=== PATIENT | female | born 1950 | race Caucasian/White ===

== ENCOUNTER 2021-07-10 11:26 | Day surgery (SDC) | payer MEDICARE, MEDICAID ==
[~2021-07-10] VITALS: Ht 157.5 cm; Wt 58.1 kg
[2021-07-10] MEDS ORDERED: fentaNYL/PF 50MCG/1 ML 2ML syringe ONE (11:40)
[2021-07-10] MEDS ORDERED: midazolam 1 mg/ML 2ml injection ONE (11:40)
[2021-07-10] MEDS ORDERED: heparin sodium, porcine/PF 100unit/ml 5ML syringe ONE (11:40)
[2021-07-10 11:50] VITALS: BP 141/72
[2021-07-10] MEDS ORDERED: normal saline 1000ml 1,000 ML IV PRN (11:50)
[2021-07-10] MEDS ORDERED: ALBU90AE2 INH (12:03)
[2021-07-10] MEDS ORDERED: HYDR-3972 PO (12:03)
[2021-07-10] MEDS ORDERED: GABAPENTIN PO (12:03)
[2021-07-10] MEDS ORDERED: ERGO400C PO (12:03)
[2021-07-10] MEDS ORDERED: BACL20TA PO (12:03)
[2021-07-10] MEDS ORDERED: OMEP40CA21 PO (12:03)
[2021-07-10] MEDS ORDERED: MULT-1085 PO (12:03)
[2021-07-10] MEDS ORDERED: MAGN250T11 PO (12:03)
[2021-07-10] MEDS ORDERED: EZET10TA48 PO (12:03)
[2021-07-10] MEDS ORDERED: ASCO100T12 PO (12:03)
[2021-07-10] MEDS ORDERED: ASPI81TA52 PO (12:03)
[2021-07-10] MEDS ORDERED: CYAN50009 PO (12:03)
[2021-07-10] MEDS ORDERED: LEVO75TA56 PO (12:03)
[2021-07-10] MEDS ORDERED: DICL75TA28 PO (12:03)
[2021-07-10] MEDS ORDERED: LOVA40TA2 PO (12:03)
[2021-07-10] MEDS ORDERED: normal saline 1000ml 1,000 ML IV SCH (13:10)
[2021-07-10 13:14] VITALS: BP 134/92
[2021-07-10 13:30] VITALS: BP 132/77
[2021-07-10 13:45] VITALS: BP 118/65
[2021-07-10 14:00] VITALS: BP 110/65
== END 2021-07-10 14:20 | disposition home or self-care (01) ==
LOC: SSTAY O 11:26
PROVIDERS: ATTEND Radiology Diagnostic Radiology
DX: C50.212 Malignant neoplasm of upper-inner quadrant of left female breast (principal); E78.00 Pure hypercholesterolemia, unspecified; I25.10 Atherosclerotic heart disease of native coronary artery without angina pectoris; E03.9 Hypothyroidism, unspecified; Z88.5 Allergy status to narcotic agent; Z79.899 Other long term (current) drug therapy; Z79.82 Long term (current) use of aspirin
CPT/HCPCS: 36561; 76937; 77001; 99152; C1769; C1788; C1894; J1642; J2250; J3010; 99153

== ENCOUNTER 2021-08-04 06:01 | Inpatient (IN) | payer MEDICARE, MEDICAID ==
[~2021-08-04] VITALS: Ht 167.6 cm; Wt 59.1 kg
[~2021-08-04 06:01] MED LIST: ALBU90AE2 INH; ASCO100T12 PO; ASPI81TA52 PO; BACL20TA PO; CYAN50009 PO; DICL75TA28 PO; ERGO400C PO; EZET10TA48 PO; GABAPENTIN PO; HYDR-3972 PO; LEVO75TA56 PO; LOVA40TA2 PO; MAGN250T11 PO; MULT-1085 PO; OMEP40CA21 PO
[2021-08-04] MEDS ORDERED: normal saline 1000ML IV soln IVB ONE (06:50)
--- NOTE | 2021-08-04 07:01 | NUR ---
Ernie haywood in ED - 08/04/21 at 0742 by CHRISTINE PT DIFFICULT TO AROUSE FOR DC APPEARS PT WAS THE SAME DURING PREVIOUS DC ABLE TO AROUSE PT TO CALL [facility] HOME NO ANSWER AT THIS TIME
[2021-08-04 07:38] LABS: EOSINOPHILS % (AUTO) 0.1 % (0-6); HEMOGLOBIN 11.8 g/dl (12.0-16.0); LYMPHOCYTES # (AUTO) 1.2 X10'3 (1.1-4.8); MEAN PLATELET VOLUME 9.1 FL (7.4-10.4); NEUTROPHILS # (AUTO) 26.1 X10'3 (1.8-7.7)
[2021-08-04 07:39] LABS: BASOPHILS # (AUTO) 0.1 X10'3 (0-0.2); BASOPHILS % (AUTO) 0.2 % (0-1); HEMATOCRIT 36.3 % (35.0-45.0); LYMPHOCYTES % (AUTO) 4.1 % (21-51); MEAN CORPUSCULAR HEMOGLOBIN 28.2 PG (27.0-31.0); MEAN CORPUSCULAR HGB CONC 32.4 g/dL (33.0-36.5); MEAN CORPUSCULAR VOLUME 87.1 FL (78-98); MONOCYTES # (AUTO) 2.3 X10'3 (0-0.9); MONOCYTES % (AUTO) 7.7 % (2-12); NEUTROPHILS % (AUTO) 87.9 % (42-75); PLATELET COUNT 154 X10'3 (140-440); RED BLOOD COUNT 4.17 X10'6 (4.20-5.60); RED CELL DISTRIBUTION WIDTH 14.9 % (11.5-14.5)
[2021-08-04 07:42] LABS: ALANINE AMINOTRANSFERASE 42 U/L (12-78); ALBUMIN 2.5 G/DL (3.4-5.0); ALBUMIN/GLOBULIN RATIO 0.7 (1.1-1.5); ALKALINE PHOSPHATASE 97 IU/L (46-116); ANION GAP 10 (8-16); ASPARTATE AMINO TRANSFERASE 30 U/L (10-37); BILIRUBIN,TOTAL 0.3 MG/DL (0.1-1.0); BLOOD UREA NITROGEN 13 MG/DL (7-18); BUN/CREATININE RATIO 14.1 (6.6-38.0); CALCIUM 8.5 MG/DL (8.5-10.1); CHLORIDE 103 MMOL/L (99-107); CREATININE 0.92 MG/DL (0.40-0.90); GLUCOSE 129 MG/DL (70-104); SODIUM 146 MMOL/L (135-145); TOTAL CARBON DIOXIDE 33.4 MMOL/L (24-32); eGFR 61 ML/MIN
--- NOTE | 2021-08-04 07:42 | NUR ---
ASSISTED PT TO BEDSIDE COMMODE FOR UA
[2021-08-04 07:48] LABS: WHITE BLOOD COUNT 29.7 X10'3 (4.5-11.0)
[2021-08-04 07:51] LABS: ETHANOL < 0.010 GM/DL (0.0-0.010)
[2021-08-04] MEDS ORDERED: potassium CL 10mEq/100ml bag 100 ML IV ONE (07:55)
[2021-08-04] MEDS ORDERED: cefTRIAXone 1g/NS 100ml IVPB 100 ML IV ONE (07:55)
[2021-08-04 08:01] LABS: URINE AMPHETAMINE SCREEN NEGATIVE (Neg); URINE BARBITUATE SCREEN NEGATIVE (Neg); URINE BENZODIAZEPINES SCREEN NEGATIVE (Neg); URINE CANNABINOID SCREEN NEGATIVE (Neg); URINE COCAINE SCREEN NEGATIVE (Neg); URINE METHADONE SCREEN NEGATIVE (Neg); URINE OPIATE SCREEN POSITIVE (Neg); URINE PHENCYCLIDINE SCREEN NEGATIVE (Neg)
[2021-08-04 08:14] LABS: CLARITY,URINE CLEAR (Clear); COLOR,URINE YELLOW (Yellow); GLUCOSE, URINE NEGATIVE (Neg); KETONES,URINE TRACE mg/dl (Neg); LEUKOCYTE ESTERASE ,URINE TRACE (Neg); NITRITES, URINE NEGATIVE (Neg); OCCULT BLOOD,URINE NEGATIVE (Neg); PH,URINE 5.5 (4.8-8.0); PROTEIN,URINE NEGATIVE (Neg); UROBILINOGEN,URINE 0.2 E.U/dL (0.2-1.0)
[2021-08-04 08:16] LABS: UA COLLECTION TYPE NON-SPECIFIED
[2021-08-04 08:17] LABS: WBC,URINE 20-30 /HPF (0-4)
[2021-08-04 08:18] LABS: BACTERIA,URINE FEW /HPF (Neg); MUCUS STRANDS NONE SEEN /LPF (Neg); RBC,URINE NONE SEEN /HPF (0-2); SQUAMOUS EPITHELIAL CELL,UR FEW /LPF (FEW); WBC CLUMPS,URINE FEW /HPF (NEGATIVE)
[2021-08-04 08:19] LABS: CELLULAR CAST 0-4 /LPF (NEGATIVE)
[2021-08-04] MEDS ORDERED: magnesium 4gm in 100ml NS 100 ML IV PRN (08:50)
[2021-08-04] MEDS ORDERED: magnesium hydroxide 30ml (MOM) UD suspension PO PRN (08:50)
[2021-08-04] MEDS ORDERED: ondansetron/PF 4mg/2ml inj IV PRN (08:50)
[2021-08-04] MEDS ORDERED: magnesium 2GM in 50ml NS 50 ML IV PRN (08:50)
[2021-08-04] MEDS ORDERED: acetaminophen 325mg tablet PO PRN (08:50)
[2021-08-04] MEDS ORDERED: mag hydrox/Alum hydrox/simeth 30ml oral suspension PO PRN (08:50)
[2021-08-04] MEDS ORDERED: potassium CL 10mEq/100ml bag 100 ML IV PRN (08:50)
[2021-08-04] MEDS ORDERED: magnesium Cl slow-release 64mg tablet PO PRN (08:50)
[2021-08-04] MEDS ORDERED: potassium Cl 20 mEq SR tablet PO PRN (08:50)
[2021-08-04 08:54] LABS: PLATELET ESTIMATE NORMAL; TOTAL CELLS COUNTED 100
[2021-08-04 09:11] LABS: MAGNESIUM 2.1 MG/DL (1.5-2.4)
[2021-08-04] MEDS: normal saline 1000ml 1,000 ML IV SCH ×2 (09:22→18:33)
[2021-08-04] MEDS ORDERED: GABA300C PO (10:30)
[2021-08-04] MEDS ORDERED: MAGN400T56 PO (10:30)
[2021-08-04] MEDS ORDERED: HYDROcodone/acetaminophen 10/325mg tab PO PRN (14:45)
[2021-08-04] MEDS ORDERED: albuterol 2.5 MG/3 ML nebule NEB PRN (15:00)
[2021-08-04] MEDS: cefepime 1GM in D5W 50mL 50 ML IV SCH (15:40)
[2021-08-04] MEDS: gabapentin 300mg capsule PO SCH (15:40)
[2021-08-04 16:00] VITALS: BP 126/77
[2021-08-04 18:00] VITALS: BP 120/57
[2021-08-04] MEDS: K and/or MAG REPLACEMENT MC SCH (20:00)
[2021-08-04] MEDS: enoxaparin 30mg/0.3ml syringe SQ SCH (20:00)
[2021-08-04] MEDS: docusate sod 100mg capsule PO SCH (20:00)
[2021-08-04 22:00] VITALS: BP 110/62
[2021-08-05] MEDS: cefepime 1GM in D5W 50mL 50 ML IV SCH ×4 (00:51→23:34)
[2021-08-05 02:00] VITALS: BP 123/61
[2021-08-05] MEDS: normal saline 1000ml 1,000 ML IV SCH ×3 (04:53→20:04)
[2021-08-05 05:38] LABS: BASOPHILS # (AUTO) 0.1 X10'3 (0-0.2); BASOPHILS % (AUTO) 0.5 % (0-1); EOSINOPHILS % (AUTO) 0.1 % (0-6); HEMATOCRIT 31.4 % (35.0-45.0); HEMOGLOBIN 10.6 g/dl (12.0-16.0); LYMPHOCYTES # (AUTO) 1.6 X10'3 (1.1-4.8); LYMPHOCYTES % (AUTO) 8.8 % (21-51); MEAN CORPUSCULAR HEMOGLOBIN 29.4 PG (27.0-31.0); MEAN CORPUSCULAR HGB CONC 33.7 g/dL (33.0-36.5); MEAN CORPUSCULAR VOLUME 87.2 FL (78-98); MEAN PLATELET VOLUME 9.2 FL (7.4-10.4); MONOCYTES # (AUTO) 1.3 X10'3 (0-0.9); MONOCYTES % (AUTO) 7.2 % (2-12); NEUTROPHILS # (AUTO) 15.1 X10'3 (1.8-7.7); NEUTROPHILS % (AUTO) 83.4 % (42-75); PLATELET COUNT 152 X10'3 (140-440); RED CELL DISTRIBUTION WIDTH 14.7 % (11.5-14.5); WHITE BLOOD COUNT 18.1 X10'3 (4.5-11.0)
[2021-08-05 05:56] LABS: ALANINE AMINOTRANSFERASE 33 U/L (12-78); ALBUMIN 2.1 G/DL (3.4-5.0); ALBUMIN/GLOBULIN RATIO 0.7 (1.1-1.5); ALKALINE PHOSPHATASE 91 IU/L (46-116); ANION GAP 10 (8-16); ASPARTATE AMINO TRANSFERASE 23 U/L (10-37); BILIRUBIN,TOTAL 0.4 MG/DL (0.1-1.0); BLOOD UREA NITROGEN 9 MG/DL (7-18); BUN/CREATININE RATIO 13.8 (6.6-38.0); CALCIUM 7.9 MG/DL (8.5-10.1); CHLORIDE 106 MMOL/L (99-107); CREATININE 0.65 MG/DL (0.40-0.90); GLUCOSE 81 MG/DL (70-104); POTASSIUM 3.2 MMOL/L (3.5-5.1); SODIUM 146 MMOL/L (135-145); TOTAL CARBON DIOXIDE 29.8 MMOL/L (24-32); TOTAL PROTEIN 5.2 G/DL (6.4-8.2); eGFR 90 ML/MIN
[2021-08-05 06:00] VITALS: BP 126/66
--- NOTE | 2021-08-05 06:20 | NUR ---
despite pt npo status rehab nurse nurse told me that she let patient have ice chips all night
--- NOTE | 2021-08-05 06:30 | NUR ---
received report from huma mcleod
[2021-08-05 06:52] LABS: TOTAL CELLS COUNTED 100
[2021-08-05 06:53] LABS: PLATELET ESTIMATE NORMAL
[2021-08-05] MEDS: K and/or MAG REPLACEMENT MC SCH ×2 (08:00→20:00)
[2021-08-05] MEDS ORDERED: Diclofenac Sodium 75MG PO SCH (08:00)
[2021-08-05] MEDS: docusate sod 100mg capsule PO SCH ×2 (08:38→20:02)
[2021-08-05] MEDS: aspirin 81mg, enteric-coated 1 TAB TABLET.DR PO SCH (08:40)
[2021-08-05] MEDS: magnesium oxide 400mg tablet PO SCH (08:41)
[2021-08-05] MEDS: gabapentin 300mg capsule PO SCH ×4 (08:42→23:34)
[2021-08-05] MEDS: pantoprazole 40mg Tablet.DR PO SCH (08:43)
[2021-08-05] MEDS: levoTHYROXINE 75mcg tablet PO SCH (08:44)
[2021-08-05] MEDS: multivitamins, therapeutics tablet PO SCH (08:46)
[2021-08-05] MEDS: ezetimibe 10mg tablet PO SCH (08:47)
[2021-08-05] MEDS: potassium Cl 20 mEq SR tablet PO PRN ×3 (08:48→16:57)
[2021-08-05] MEDS: enoxaparin 30mg/0.3ml syringe SQ SCH ×2 (10:30→20:02)
[2021-08-05 11:00] VITALS: BP 141/69
[2021-08-05 15:00] VITALS: BP 146/62
[2021-08-05 18:00] VITALS: BP 121/67
--- NOTE | 2021-08-05 18:14 | NUR ---
gave report to huma clarke
[2021-08-06 02:00] VITALS: BP 153/79
[2021-08-06 05:53] LABS: BASOPHILS # (AUTO) 0.1 X10'3 (0-0.2); BASOPHILS % (AUTO) 0.4 % (0-1); EOSINOPHILS % (AUTO) 0.1 % (0-6); HEMOGLOBIN 11.7 g/dl (12.0-16.0); LYMPHOCYTES # (AUTO) 1.5 X10'3 (1.1-4.8); LYMPHOCYTES % (AUTO) 9.2 % (21-51); MEAN CORPUSCULAR HEMOGLOBIN 28.4 PG (27.0-31.0); MEAN CORPUSCULAR HGB CONC 32.5 g/dL (33.0-36.5); MEAN CORPUSCULAR VOLUME 87.5 FL (78-98); MONOCYTES # (AUTO) 1.1 X10'3 (0-0.9); MONOCYTES % (AUTO) 6.4 % (2-12); NEUTROPHILS # (AUTO) 14.1 X10'3 (1.8-7.7); NEUTROPHILS % (AUTO) 83.9 % (42-75); PLATELET COUNT 203 X10'3 (140-440); RED BLOOD COUNT 4.11 X10'6 (4.20-5.60); RED CELL DISTRIBUTION WIDTH 14.7 % (11.5-14.5); WHITE BLOOD COUNT 16.8 X10'3 (4.5-11.0)
[2021-08-06 06:00] VITALS: BP 144/76
[2021-08-06 06:15] LABS: PLATELET ESTIMATE NORMAL; TOTAL CELLS COUNTED 100
[2021-08-06 06:38] LABS: ALANINE AMINOTRANSFERASE 35 U/L (12-78); ALBUMIN 2.5 G/DL (3.4-5.0); ALBUMIN/GLOBULIN RATIO 0.7 (1.1-1.5); ALKALINE PHOSPHATASE 86 IU/L (46-116); ANION GAP 10 (8-16); ASPARTATE AMINO TRANSFERASE 33 U/L (10-37); BILIRUBIN,TOTAL 0.5 MG/DL (0.1-1.0); BLOOD UREA NITROGEN 5 MG/DL (7-18); BUN/CREATININE RATIO 10.6 (6.6-38.0); CALCIUM 8.3 MG/DL (8.5-10.1); CHLORIDE 105 MMOL/L (99-107); CREATININE 0.47 MG/DL (0.40-0.90); GLUCOSE 79 MG/DL (70-104); POTASSIUM 3.7 MMOL/L (3.5-5.1); SODIUM 141 MMOL/L (135-145); TOTAL CARBON DIOXIDE 25.7 MMOL/L (24-32); TOTAL PROTEIN 5.9 G/DL (6.4-8.2); eGFR > 90 ML/MIN
[2021-08-06] MEDS: normal saline 1000ml 1,000 ML IV SCH (08:47)
[2021-08-06] MEDS: cefepime 1GM in D5W 50mL 50 ML IV SCH (08:49)
[2021-08-06] MEDS: aspirin 81mg, enteric-coated 1 TAB TABLET.DR PO SCH (08:56)
[2021-08-06] MEDS: multivitamins, therapeutics tablet PO SCH (08:56)
[2021-08-06] MEDS: pantoprazole 40mg Tablet.DR PO SCH (08:56)
[2021-08-06] MEDS: docusate sod 100mg capsule PO SCH (08:56)
[2021-08-06] MEDS: gabapentin 300mg capsule PO SCH (08:57)
[2021-08-06] MEDS: levoTHYROXINE 75mcg tablet PO SCH (08:57)
[2021-08-06] MEDS: ezetimibe 10mg tablet PO SCH (08:58)
[2021-08-06] MEDS: magnesium oxide 400mg tablet PO SCH (08:58)
[2021-08-06] MEDS: enoxaparin 30mg/0.3ml syringe SQ SCH (08:59)
[2021-08-06] MEDS: K and/or MAG REPLACEMENT MC SCH (09:00)
[2021-08-06] MEDS ORDERED: LEVO750T46 PO (10:24)
--- NOTE | 2021-08-06 14:47 | NUR ---
Patient discharged at this time with family provided oxygen. Discharge instructions reviewed and patient has no additional questions at this time.
== END 2021-08-06 14:38 | disposition home health service (06) | DRG 917 ==
LOC: ER 06:01 → ED HOLD 08:54 → EDBEDREQTM 12:01 → PCU 3S 13:38
PROVIDERS: ADMIT Family Medicine; ATTEND Family Medicine
DX: T42.8X1A Poisoning by antiparkinsonism drugs and other central muscle-tone depressants, accidental (unintentional), initial encounter (principal); A41.9 Sepsis, unspecified organism; G92.8 Other toxic encephalopathy; J69.0 Pneumonitis due to inhalation of food and vomit; N39.0 Urinary tract infection, site not specified; M54.32 Sciatica, left side; E78.5 Hyperlipidemia, unspecified; C50.912 Malignant neoplasm of unspecified site of left female breast; E87.6 Hypokalemia; F17.210 Nicotine dependence, cigarettes, uncomplicated; G89.4 Chronic pain syndrome; J44.9 Chronic obstructive pulmonary disease, unspecified; G62.9 Polyneuropathy, unspecified; K21.9 Gastro-esophageal reflux disease without esophagitis; Z85.850 Personal history of malignant neoplasm of thyroid; Z88.5 Allergy status to narcotic agent; Y92.098 Other place in other non-institutional residence as the place of occurrence of the external cause; Z71.6 Tobacco abuse counseling
CPT/HCPCS: 36415; 70450; 71045; 80053; 80305; 80320; 81001; 83605; 83735; 84443; 85007; 85025; 87040; 87088; 93005; 96361; 96374; 96375; 97161; 97530; 99285; G0378; J0692; J0696; J1650; J2405; J3480; J7030

== ENCOUNTER 2021-11-25 18:49 | Emergency (ER) | payer MEDICARE, MEDICAID ==
[~2021-11-25] VITALS: Ht 160 cm; Wt 54.0 kg
[~2021-11-25 18:49] MED LIST changes: -ASCO100T12 PO; -BACL20TA PO; -CYAN50009 PO; -ERGO400C PO; +GABA300C PO; -GABAPENTIN PO; -MAGN250T11 PO; +MAGN400T56 PO
[2021-11-25 18:59] VITALS: BP 140/62
[2021-11-25] MEDS ORDERED: sulfamethoxazole/trimethoprim DS (800/160mg) tablet PO ONE (19:45)
[2021-11-25] MEDS ORDERED: SULF1TAB45 PO (19:46)
== END 2021-11-25 20:07 | disposition home or self-care (01) ==
LOC: ER 18:49
DX: T81.9XXA Unspecified complication of procedure, initial encounter (principal); L76.82 Other postprocedural complications of skin and subcutaneous tissue; J44.9 Chronic obstructive pulmonary disease, unspecified; Z88.5 Allergy status to narcotic agent; Z79.899 Other long term (current) drug therapy; Z79.82 Long term (current) use of aspirin
CPT/HCPCS: 99284

== ENCOUNTER 2023-09-18 11:24 | Emergency (ER) | payer MEDICARE, MEDICAID ==
[~2023-09-18] VITALS: Ht 160 cm; Wt 54.9 kg
[2023-09-18 11:26] VITALS: TEMP 98
[2023-09-18 14:26] VITALS: BP 108/68; PULSE 71; RESP 16; O2SAT 95
[2023-09-19] MEDS ORDERED: DULO60CA65 PO (23:18)
[2023-09-19] MEDS ORDERED: PROC10TA97 PO (23:18)
[2023-09-19] MEDS ORDERED: BACL20TA PO (23:18)
== END 2023-09-18 14:30 | disposition home or self-care (01) ==
LOC: ER 11:26
DX: S13.4XXA Sprain of ligaments of cervical spine, initial encounter (principal); S00.83XA Contusion of other part of head, initial encounter; M25.562 Pain in left knee; J44.9 Chronic obstructive pulmonary disease, unspecified; Z88.5 Allergy status to narcotic agent; Z79.82 Long term (current) use of aspirin; Z79.1 Long term (current) use of non-steroidal anti-inflammatories (NSAID); Z79.899 Other long term (current) drug therapy; Z79.2 Long term (current) use of antibiotics; W19.XXXA Unspecified fall, initial encounter; Y93.89 Activity, other specified; Y92.89 Other specified places as the place of occurrence of the external cause; Y99.8 Other external cause status
CPT/HCPCS: 70450; 72125; 73564; 99284

== ENCOUNTER 2023-09-19 23:11 | Inpatient (IN) | payer MEDICARE, MEDICAID ==
[~2023-09-19] VITALS: Ht 162.6 cm; Wt 55.1 kg
[2023-09-19] MEDS: normal saline 1000ML IV soln IVB ONE (23:15)
[2023-09-19] MEDS ORDERED: BACL20TA PO (23:18)
[2023-09-19] MEDS ORDERED: PROC10TA97 PO (23:18)
[2023-09-19] MEDS ORDERED: DULO60CA65 PO (23:18)
[2023-09-20 00:37] LABS: BASOPHILS # (AUTO) 0.1 X10'3 (0-0.2); BASOPHILS % (AUTO) 0.6 % (0-1); EOSINOPHILS # (AUTO) 0.4 X10'3 (0-0.9); EOSINOPHILS % (AUTO) 3.2 % (0-6); HEMATOCRIT 44.4 % (35.0-45.0); HEMOGLOBIN 14.9 g/dl (12.0-16.0); LYMPHOCYTES # (AUTO) 1.3 X10'3 (1.1-4.8); LYMPHOCYTES % (AUTO) 10.4 % (21-51); MEAN CORPUSCULAR HEMOGLOBIN 30.2 PG (27.0-31.0); MEAN CORPUSCULAR HGB CONC 33.6 g/dL (33.0-36.5); MEAN CORPUSCULAR VOLUME 89.8 FL (78-98); MEAN PLATELET VOLUME 8.4 FL (7.4-10.4); MONOCYTES # (AUTO) 0.7 X10'3 (0-0.9); MONOCYTES % (AUTO) 5.4 % (2-12); NEUTROPHILS % (AUTO) 80.4 % (42-75); PLATELET COUNT 344 X10'3 (140-440); RED BLOOD COUNT 4.95 X10'6 (4.20-5.60); RED CELL DISTRIBUTION WIDTH 14.5 % (11.5-14.5); WHITE BLOOD COUNT 12.4 X10'3 (4.5-11.0)
[2023-09-20 00:41] LABS: ALBUMIN 3.6 G/DL (3.4-5.0); ANION GAP 12 (8-16); BLOOD UREA NITROGEN 10 MG/DL (7-18); BUN/CREATININE RATIO 11.2 (10.0-20.0); CALCIUM 9.1 MG/DL (8.5-10.1); CHLORIDE 104 MMOL/L (99-107); CREATININE 0.89 MG/DL (0.40-0.90); GLUCOSE 95 MG/DL (70-104); SODIUM 147 MMOL/L (135-145); TOTAL CARBON DIOXIDE 31.4 MMOL/L (24-32); eCRCL 50 ML/MIN; eGFR 63 ML/MIN
[2023-09-20 00:53] LABS: BILIRUBIN,URINE SMALL (Neg); CLARITY,URINE CLEAR (Clear); COLOR,URINE YELLOW (Yellow); GLUCOSE, URINE NEGATIVE (Neg); KETONES,URINE NEGATIVE (Neg); LEUKOCYTE ESTERASE ,URINE NEGATIVE (Neg); NITRITES, URINE NEGATIVE (Neg); OCCULT BLOOD,URINE NEGATIVE (Neg); PH,URINE 5.5 (4.8-8.0); PROTEIN,URINE NEGATIVE (Neg); UROBILINOGEN,URINE 0.2 E.U/dL (0.2-1.0)
[2023-09-20 00:58] LABS: UA COLLECTION TYPE STRAIGHT CATH
[2023-09-20] MEDS ORDERED: magnesium Cl slow-release 64mg tablet PO PRN (01:30)
[2023-09-20] MEDS ORDERED: acetaminophen 325mg tablet PO PRN ×2 (01:30)
[2023-09-20] MEDS ORDERED: potassium Cl 20 mEq SR tablet PO PRN (01:30)
[2023-09-20] MEDS ORDERED: magnesium 4gm in 100ml NS 100 ML IV PRN (01:30)
[2023-09-20] MEDS ORDERED: potassium Cl 40MEQ/1/2NS 520ml 520 ML IV PRN (01:30)
[2023-09-20] MEDS ORDERED: magnesium 2GM in 50ml NS 50 ML IV PRN (01:30)
[2023-09-20] MEDS ORDERED: mag hydrox/Alum hydrox/simeth 30ml oral suspension PO PRN (01:30)
[2023-09-20] MEDS ORDERED: magnesium hydroxide 30ml (MOM) UD suspension PO PRN (01:30)
[2023-09-20] MEDS: potassium Cl 40MEQ/1/2NS 520ml 520 ML IV ONE (01:40)
[2023-09-20] MEDS: normal saline 1000ml 1,000 ML IV SCH (02:13)
[2023-09-20] MEDS: morphine 2 MG/ML inj. syringe IV ONE (03:09)
[2023-09-20 04:27] LABS: MAGNESIUM 2.1 MG/DL (1.5-2.4); POTASSIUM 3.1 MMOL/L (3.5-5.1)
[2023-09-20 07:00] VITALS: BP 143/81; PULSE 61; RESP 16; TEMP 97.8; O2SAT 96
[2023-09-20 07:25] VITALS: RESP 18; O2SAT 97
[2023-09-20] MEDS: K and/or MAG REPLACEMENT MC SCH (08:00)
[2023-09-20] MEDS ORDERED: atorvastatin 10mg tablet PO SCH (08:00)
[2023-09-20] MEDS: ezetimibe 10mg tablet PO SCH (09:33)
[2023-09-20] MEDS: pantoprazole 40mg Tablet.DR PO SCH (09:34)
[2023-09-20] MEDS: heparin, porcine 5000 units/ml vial SQ SCH (09:34)
[2023-09-20] MEDS: levoTHYROXINE 75mcg tablet PO SCH (09:36)
[2023-09-20 10:00] VITALS: BP 172/101; PULSE 80; RESP 20; TEMP 99.5; O2SAT 96
[2023-09-20] MEDS: potassium Cl 20 mEq SR tablet PO PRN (15:02)
[2023-09-20 18:00] VITALS: BP 144/82; PULSE 82; RESP 18; TEMP 98.6; O2SAT 97
[2023-09-20] MEDS: naproxen 500mg tablet PO PRN (18:15)
[2023-09-20 20:00] VITALS: RESP 18; O2SAT 97
[2023-09-20] MEDS: ondansetron/PF 4mg/2ml inj IV PRN (22:15)
[2023-09-20 22:31] VITALS: BP 151/91; PULSE 73; RESP 18; TEMP 98.5; O2SAT 98
[2023-09-21 02:30] VITALS: BP 148/86; PULSE 72; RESP 18; TEMP 97.5; O2SAT 96
[2023-09-21 06:00] VITALS: BP_SYST 141; BP_SYST 171; BP_DIAS 78; BP_DIAS 81; PULSE 72; PULSE 85; RESP 14; RESP 18; TEMP 97.6; TEMP 97.7; O2SAT 97; O2SAT 98
[2023-09-21 07:33] LABS: BASOPHILS # (AUTO) 0.1 X10'3 (0-0.2); EOSINOPHILS # (AUTO) 0.2 X10'3 (0-0.9); EOSINOPHILS % (AUTO) 3.2 % (0-6); HEMATOCRIT 41.2 % (35.0-45.0); HEMOGLOBIN 13.4 g/dl (12.0-16.0); LYMPHOCYTES # (AUTO) 1.2 X10'3 (1.1-4.8); LYMPHOCYTES % (AUTO) 18.2 % (21-51); MEAN CORPUSCULAR HEMOGLOBIN 29.5 PG (27.0-31.0); MEAN CORPUSCULAR HGB CONC 32.6 g/dL (33.0-36.5); MEAN CORPUSCULAR VOLUME 90.3 FL (78-98); MEAN PLATELET VOLUME 8.9 FL (7.4-10.4); MONOCYTES # (AUTO) 0.5 X10'3 (0-0.9); NEUTROPHILS # (AUTO) 4.8 X10'3 (1.8-7.7); NEUTROPHILS % (AUTO) 69.6 % (42-75); PLATELET COUNT 290 X10'3 (140-440); RED BLOOD COUNT 4.56 X10'6 (4.20-5.60); RED CELL DISTRIBUTION WIDTH 14.7 % (11.5-14.5); WHITE BLOOD COUNT 6.9 X10'3 (4.5-11.0)
[2023-09-21 08:00] VITALS: RESP 14; O2SAT 98
[2023-09-21 08:22] LABS: ALBUMIN 3.1 G/DL (3.4-5.0); ANION GAP 11 (8-16); BLOOD UREA NITROGEN 3 MG/DL (7-18); CALCIUM 7.4 MG/DL (8.5-10.1); CHLORIDE 104 MMOL/L (99-107); GLUCOSE 98 MG/DL (70-104); MAGNESIUM 1.5 MG/DL (1.5-2.4); PHOSPHORUS 1.9 MG/DL (2.3-4.5); POTASSIUM 3.2 MMOL/L (3.5-5.1); SODIUM 141 MMOL/L (135-145); THYROID STIMULATING HORMONE 0.65 ulU/ml (0.34-4.50); TOTAL CARBON DIOXIDE 26.3 MMOL/L (24-32); eCRCL 89 ML/MIN; eGFR > 90 ML/MIN
[2023-09-21] MEDS: atorvastatin 10mg tablet PO SCH (08:53)
[2023-09-21] MEDS ORDERED: POTA-207 PO (10:51)
== END 2023-09-21 13:20 | disposition home or self-care (01) | DRG 85 ==
LOC: ER 23:11 → INTOOBSV 09-20 01:33 → UNDOADMOB 09-20 01:33 → OBSVTOIN 09-20 01:33 → ED HOLD 09-20 01:33 → ORTHO 4S 09-20 07:12 → OBSVTOIN 09-20 13:00 → ED HOLD 09-20 13:00 → ORTHO 4S 09-20 13:00
PROVIDERS: ADMIT Surgery Surgical Critical Care; ATTEND Family Medicine
DX: S06.890A Other specified intracranial injury without loss of consciousness, initial encounter (principal); G92.8 Other toxic encephalopathy; E87.0 Hyperosmolality and hypernatremia; E87.1 Hypo-osmolality and hyponatremia; E87.6 Hypokalemia; E03.9 Hypothyroidism, unspecified; E86.0 Dehydration; J44.9 Chronic obstructive pulmonary disease, unspecified; W18.39XA Other fall on same level, initial encounter; Z88.5 Allergy status to narcotic agent; Z79.899 Other long term (current) drug therapy; Z85.3 Personal history of malignant neoplasm of breast; Y93.89 Activity, other specified; Y92.89 Other specified places as the place of occurrence of the external cause; Y99.8 Other external cause status
CPT/HCPCS: 36415; 70450; 71045; 72125; 73564; 80048; 81003; 83735; 84100; 84132; 84145; 84443; 84484; 85025; 93005; 93306; 97161; 97530; 99285; A4353; A4615; G0378; J1644; J2270; J2405; J3480; J7030

== ENCOUNTER 2024-04-07 05:02 | Emergency (ER) | payer MEDICARE, MEDICAID ==
[~2024-04-07] VITALS: Ht 157.5 cm; Wt 59.0 kg
[~2024-04-07 05:02] MED LIST changes: -ALBU90AE2 INH; -ASPI81TA52 PO; -HYDR-3972 PO; +ONDA-245 PO; +POTA-207 PO; +PROC10TA97 PO
[2024-04-07] MEDS ORDERED: LOPE2CAP PO (05:35)
[2024-04-07] MEDS ORDERED: ONDA-245 PO (05:35)
[2024-04-07] MEDS: proCHLORperazine 10 MG/2 ml inj IV ONE (05:42)
[2024-04-07] MEDS: normal saline 1000ml 1,000 ML IV ONE (05:42)
[2024-04-07] MEDS: ondansetron/PF 4mg/2ml inj IV ONE (05:42)
[2024-04-07 05:59] LABS: BASOPHILS % (AUTO) 0.6 % (0-1); EOSINOPHILS # (AUTO) 0.2 X10'3 (0-0.9); EOSINOPHILS % (AUTO) 3.1 % (0-6); HEMATOCRIT 39.7 % (35.0-45.0); HEMOGLOBIN 13.5 g/dl (12.0-16.0); LYMPHOCYTES # (AUTO) 1.1 X10'3 (1.1-4.8); LYMPHOCYTES % (AUTO) 18.6 % (21-51); MEAN CORPUSCULAR HEMOGLOBIN 29.9 PG (27.0-31.0); MEAN CORPUSCULAR HGB CONC 33.9 g/dL (33.0-36.5); MEAN CORPUSCULAR VOLUME 88.1 FL (78-98); MEAN PLATELET VOLUME 8.7 FL (7.4-10.4); MONOCYTES # (AUTO) 0.5 X10'3 (0-0.9); MONOCYTES % (AUTO) 7.7 % (2-12); NEUTROPHILS # (AUTO) 4.1 X10'3 (1.8-7.7); PLATELET COUNT 227 X10'3 (140-440); RED CELL DISTRIBUTION WIDTH 15.3 % (11.5-14.5); WHITE BLOOD COUNT 5.9 X10'3 (4.5-11.0)
[2024-04-07 06:27] LABS: ALANINE AMINOTRANSFERASE 17 U/L (12-78); ALBUMIN 3.9 G/DL (3.4-5.0); ALBUMIN/GLOBULIN RATIO 1.3 (1.1-1.5); ALKALINE PHOSPHATASE 35 IU/L (46-116); ANION GAP 8 (8-16); ASPARTATE AMINO TRANSFERASE 17 U/L (10-37); BILIRUBIN,TOTAL 0.9 MG/DL (0.1-1.0); BLOOD UREA NITROGEN 4 MG/DL (7-18); BUN/CREATININE RATIO 6.5 (10.0-20.0); CALCIUM 8.7 MG/DL (8.5-10.1); CHLORIDE 104 MMOL/L (99-107); CREATININE 0.62 MG/DL (0.40-0.90); GLUCOSE 114 MG/DL (70-104); LIPASE 45 U/L (16-77); PRO BRAIN NATRIURETIC PEPTIDE < 30 PG/ML (0-125); SODIUM 145 MMOL/L (135-145); TOTAL CARBON DIOXIDE 33.5 MMOL/L (24-32); eCRCL 65 ML/MIN; eGFR > 90 ML/MIN
[2024-04-07 06:37] LABS: POTASSIUM 2.9 MMOL/L (3.5-5.1)
[2024-04-07] MEDS: POTASSIUM BICARB 20meq eff tab 20 MEQ TABLET.EFF PO ONE (07:12)
[2024-04-07 07:13] VITALS: BP 142/77; PULSE 76; RESP 16; O2SAT 93
[2024-04-07] MEDS: potassium CL 10mEq/100ml bag 100 ML IV SCH (07:13)
[2024-04-07 07:14] LABS: BILIRUBIN,URINE NEGATIVE (Neg); CLARITY,URINE CLEAR (Clear); COLOR,URINE STRAW (Yellow); GLUCOSE, URINE NEGATIVE (Neg); KETONES,URINE NEGATIVE (Neg); LEUKOCYTE ESTERASE ,URINE NEGATIVE (Neg); NITRITES, URINE NEGATIVE (Neg); OCCULT BLOOD,URINE NEGATIVE (Neg); PROTEIN,URINE NEGATIVE (Neg); UROBILINOGEN,URINE 0.2 E.U/dL (0.2-1.0)
[2024-04-07 07:31] LABS: UA COLLECTION TYPE CLN CATCH MIDSTREAM
[2024-04-07 09:12] VITALS: TEMP 97.7
== END 2024-04-07 09:13 | disposition home or self-care (01) ==
LOC: ER 05:03
DX: K52.89 Other specified noninfective gastroenteritis and colitis (principal); J44.9 Chronic obstructive pulmonary disease, unspecified; Z88.5 Allergy status to narcotic agent; Z79.899 Other long term (current) drug therapy; Z85.3 Personal history of malignant neoplasm of breast
CPT/HCPCS: 36415; 71045; 80053; 81003; 83690; 83880; 84484; 85025; 93005; 96361; 96374; 96375; 99285; J0780; J2405; J3480; J7030

== ENCOUNTER 2024-10-31 19:18 | Emergency (ER) | payer MEDICARE, MEDICAID ==
[~2024-10-31] VITALS: Ht 157.5 cm; Wt 61.4 kg
[~2024-10-31 19:18] MED LIST changes: +LOPE2CAP PO
--- NOTE | 2024-10-31 19:34 | Physician Documentation ---
History of Present Illness ~ Chief Complaint: Rash Stated Complaint: RASH ON BACK Time Seen by MD: 22:35 Primary Medical Doctor: [facility] HPI Patient presents to the emergency room with five day history of rash on her back that has painful. She was denies any traumas or falls or insect bites. No prior instances. She has noticed that a couple of red spots have now started to show up beneath her left breast Medication Reconciliation Allergies: Coded Allergies: codeine (Verified Allergy, Unknown, 10/31/24) Scheduled Diclofenac Sodium (Diclofenac Sodium), 1 TAB PO DAILY, (Reported) Ezetimibe (Ezetimibe), 1 TAB PO DAILY, (Reported) Gabapentin (Neurontin), 1 CAP PO Q8H, (Reported) Levothyroxine Sodium (Levoxyl), 1 TAB PO DAILY, (Reported) Loperamide Hcl (Loperamide), 2 CAP PO Q6H Lovastatin (Lovastatin), 1 TAB PO DAILY, (Reported) Magnesium Oxide (Magnesium Oxide), 1 TAB PO DAILY, (Reported) Multivitamin (Multi Vitamin Daily), 1 TAB PO DAILY, (Reported) Omeprazole (Prilosec), 1 CAP PO DAILY, (Reported) Ondansetron 8mg ODT (Ondansetron Odt), 1 TAB PO Q6H Ondansetron 8mg ODT (Ondansetron Odt), 1 TAB PO Q6H Potassium Chloride* (K-Dur*), 2 TAB PO DAILY Prochlorperazine Maleate (Prochlorperazine Maleate), 10 MG PO TID prn, (Reported) Past Medical History Past Medical History: No Pertinent History, COPD, *CANCER*, Breast Cancer Past Surgical History: cancer surgery Patient History: PATIENT STARTED ON CHEMO 07/17 NEXT CHEMO ON 08/14 Alcohol Use: None Drug Use: none Lives In: Home Review of Systems ROS All review of systems negative except as per HPI Physical Exam Vital Signs: Temperature: 97.7, Source: Temporal, Heart Rate: 66, Respiratory Rate: 16, BP: 137/68, Pulse Oximetry: 96, Weight: 61.350 Oxygen Flow Rate: 0 Physical Exam General: Patient is awake, alert, oriented x4 in no acute distress and well appearing.~ Head: Normocephalic and atraumatic. Eyes: Conjunctival normal. EOMI. PERRL. ENT: Mucous membranes moist. Neck: Supple, trachea is midline. Chest: Clear to auscultation bilaterally without rales, rhonchi, or wheezes. There is no accessory muscle use or retractions. Cardiac: RRR without murmurs, gallops, or rubs. Back: Vesicular rash that does not cross the midline measuring 3 cm x 4 cm at the midthoracic of her left side. Progress Results/Orders Results/Orders Orders - SIMON WELCH MD Acyclovir 800mg Tablet (Zovirax Tablet) (10/31/24 22:45) Vital Signs 10/31/24 19:25 Temp 97.7 Pulse 66 Resp 16 B/P (MAP) 137/68 Pulse Ox 96 O2 Flow Rate 0 Medical Decision Making Findings Patient presented to the emergency room with painful vesicular rash on her back as per HPI. Differentials include but are not limited to shingles, impetigo, cellulitis, insect bite. Physical exam is consistent with shingles and we will treat her as such. ER precautions discussed as well as the need to follow up with her doctor for the need for possible pain management. Departure Disposition: 01 HOME / SELF CARE / HOMELESS Impression: Primary Impression: Shingles Condition: Stable Discharge Instructions: Shingles Referrals: NO PRIMARY CARE PROVIDER (PCP) Prescriptions Hydrocodone Bit/Acetaminophen 5/325 MG ([place] 5/325 MG) 5 Mg/325 Mg Tablet 1 TAB PO Q4-6 hours PRN for pain, #10 TAB Prov: SIMON WELCH MD 10/31/24 Lidocaine HCl (Lidocaine HCl Viscous) 2 % Solution 15 ML TOP Q6H for pain, #100 ML 0 Refills Prov: SIMON WELCH MD 10/31/24 Acyclovir* (Zovirax*) 800 Mg Tablet 1 TAB PO 5XD for 7 Days, #35 TAB Prov: SIMON WELCH MD 10/31/24 Education Educated: Patient Educated regarding: diagnosis, treatment, need for follow up Additional Comment Medical Screen Exam History: This 74-year-old female presents with rash to her left upper back and left chest for the past five days, patient describes it as uncomfortable though not necessarily painful. Exam: VITALS: Reviewed and as above. GENERAL: Alert, nontoxic appearing, no apparent distress. RESPIRATORY: No increased work of breathing, no respiratory distress, speaking in full clear sentences MSE performed in triage and patient returned to ED lobby by nursing staff to await available ED room for full exam and evaluation, patient is well-appearing hemodynamically stable and appropriate to wait in ED lobby The note accurately reflects work and decisions made by me.RAFAEL Seymour 10/31/24 19:34 Signature Scribe Signature: No scribe Attestation: The note accurately reflects work and decisions made by me.Simon Welch MD 10/31/24 22:51 ECHO DESAI Oct 31, 2024 19:34 SIMON WELCH MD Oct 31, 2024 22:49
[2024-10-31] MEDS ORDERED: HYDR-3965 PO (22:51)
[2024-10-31] MEDS ORDERED: LIDO15SO9 TOP (22:51)
[2024-10-31] MEDS ORDERED: ACYC-129 PO (22:51)
[2024-10-31] MEDS: acyclovir 200 MG capsule PO ONE ×2 (23:36)
[2024-10-31 23:39] VITALS: BP 133/64; PULSE 60; RESP 16; TEMP 98.6; O2SAT 98
== END 2024-10-31 23:40 | disposition home or self-care (01) ==
LOC: ER 19:19
DX: B02.9 Zoster without complications (principal); J44.9 Chronic obstructive pulmonary disease, unspecified; Z88.5 Allergy status to narcotic agent
CPT/HCPCS: 99283; A6402; A6449

== ENCOUNTER 2025-03-23 17:12 | Emergency (ER) | payer MEDICARE, MEDICAID ==
[~2025-03-23] VITALS: Ht 157.5 cm; Wt 61.9 kg
[~2025-03-23 17:12] MED LIST changes: -EZET10TA48 PO; +EZET10TA80 PO; +LIDO15SO9 TOP
[2025-03-23 17:24] VITALS: BP 134/71; PULSE 67; O2SAT 96
--- NOTE | 2025-03-23 18:06 | Physician Documentation ---
History of Present Illness ~ Chief Complaint: Back Pain Stated Complaint: BACK PAIN/VOMITING Time Seen by MD: 18:47 Primary Medical Doctor: [facility] HPI Patient is a very pleasant 74-year-old female that presents to the emergency department for evaluation of back pain x3 days. Patient reports that she was driving twisted in her car to terminal and see something in the back seat at that time straining her back. Patient reports pain has been significant. Patient denies any numbness or tingling in her upper or lower extremities patient denies any incontinence of bowel or bladder any perineal numbness. Patient reports no injury or trauma at this time. Patient reports that she has tried Tylenol without any improvement. Medication Reconciliation Allergies: Coded Allergies: codeine (Verified Allergy, Unknown, 03/23/25) Scheduled Diclofenac Sodium (Diclofenac Sodium), 1 TAB PO DAILY, (Reported) Ezetimibe (Ezetimibe), 1 TAB PO DAILY, (Reported) Gabapentin (Neurontin), 1 CAP PO Q8H, (Reported) Levothyroxine Sodium (Levoxyl), 1 TAB PO DAILY, (Reported) Lidocaine HCl (Lidocaine HCl Viscous), 15 ML TOP Q6H Loperamide Hcl (Loperamide), 2 CAP PO Q6H Lovastatin (Lovastatin), 1 TAB PO DAILY, (Reported) Magnesium Oxide (Magnesium Oxide), 1 TAB PO DAILY, (Reported) Multivitamin (Multi Vitamin Daily), 1 TAB PO DAILY, (Reported) Omeprazole (Prilosec), 1 CAP PO DAILY, (Reported) Ondansetron 8mg ODT (Ondansetron Odt), 1 TAB PO Q6H Ondansetron 8mg ODT (Ondansetron Odt), 1 TAB PO Q6H Potassium Chloride* (K-Dur*), 2 TAB PO DAILY Prochlorperazine Maleate (Prochlorperazine Maleate), 10 MG PO TID prn, (Reported) Past Medical History Past Medical History: No Pertinent History, COPD, *CANCER*, Breast Cancer Past Surgical History: cancer surgery Patient History: PATIENT STARTED ON CHEMO 07/17 NEXT CHEMO ON 08/14 Alcohol Use: None Drug Use: none Lives In: Home Review of Systems ROS As stated above in the HPI, otherwise all systems are reviewed and negative. Physical Exam Physical Exam Vital Signs: Temperature: 97.7, Source: Temporal, Heart Rate: 67, Respiratory Rate: 16, BP: 134/71, Pulse Oximetry: 96, Weight: 61.900 Oxygen Flow Rate: 0 Physical Exam VITALS: Reviewed and as above. GENERAL: Alert, no apparent distress. HEENT: Normocephalic, atraumatic, PERRL, EOMI, dry mucosa, no erythema RESPIRATORY: Lungs clear, normal breath sounds, no respiratory distress. CHEST: No accessory muscle use, no retractions CV: Regular rate, rhythm, no edema, no murmur, No: JVD GI: Soft, non-tender, bowels sounds present, no rebound, guarding, or rigidity BACK: No CVA tenderness, or swelling MUSCULOSKELETAL No deformities, no edema, reduced range of motion during examination. SKIN: Warm and dry, no rash NEURO: Oriented x4, No motor or sensory deficit PSYCH: Normal mood and affect, no agitation Progress Results/Orders Results/Orders Orders - PAMELA ZELAYA [employer] Chest,Single View (03/23/25 18:16) Monitor (03/23/25 18:05) Saline Lock (03/23/25 18:05) Oxygen (03/23/25 18:05) Hs Troponin I W Calculations (03/23/25 20:05) Hs Troponin I W Calculations (03/23/25 21:05) Urinalysis, Cult If Indicated (03/23/25 19:27) Completed Orders - PAMELA ZELAYA [employer] Chest,Single View (03/23/25 18:16) Cbc/Diff (03/23/25 18:05) BMP (03/23/25 18:05) PBNP (03/23/25 18:05) Electrocardiogram (03/23/25 18:05) Hs Troponin I W Calculations (03/23/25 18:05) Ketorolac Trometh 30mg/Ml Vial (Toradol (03/23/25 19:45) Cyclobenzaprine Tablet (Flexeril Tablet) (03/23/25 19:45) Vital Signs 03/23/25 17:24 Temp 97.7 Pulse 67 Resp 16 B/P (MAP) 134/71 Pulse Ox 96 O2 Flow Rate 0 Laboratory Tests Test 03/23/25 18:18 03/23/25 18:19 Troponin I High Sensitivity 4 White Blood Count 7.3 Red Blood Count 4.60 Hemoglobin 13.7 Hematocrit 41.3 Mean Corpuscular Volume 89.8 Mean Corpuscular Hemoglobin 29.7 Mean Corpuscular Hemoglobin Concent 33.1 Red Cell Distribution Width 14.5 Platelet Count 238 Mean Platelet Volume 8.7 Neutrophils (%) (Auto) 66.1 Lymphocytes (%) (Auto) 21.5 Monocytes (%) (Auto) 8.5 Eosinophils (%) (Auto) 3.2 Basophils (%) (Auto) 0.7 Neutrophils # (Auto) 4.8 Lymphocytes # (Auto) 1.6 Monocytes # (Auto) 0.6 Eosinophils # (Auto) 0.2 Basophils # (Auto) 0.0 CBC Comment Sodium Level 141 Potassium Level 3.8 Chloride Level 106 Carbon Dioxide Level 30.6 Anion Gap 4 L Blood Urea Nitrogen 10 Creatinine 0.66 Estimated GFR/1.73 m2 88 BUN/Creatinine Ratio 15.2 Glucose Level 97 Calcium Level 8.0 L Pro-B-Type Natriuretic Peptide < 30 Albumin 3.8 Chemistry Comments Medical Decision Making Additional information obtaine: other Findings Medical Decision-Making (Discharge Note): The patient presented with musculoskeletal strain. Cardiac workup, including laboratory diagnostics, radiologic imaging, and 12-lead electrocardiogram, is negative and without concern at this time. No acute or emergent findings identified. In the emergency department, the patient was trialed on ketorolac (Toradol) and cyclobenzaprine (Flexeril), with noted improvement in symptoms. Pain was managed with opioid-sparing agents, consistent with quality indicators for musculoskeletal injury care. No opioids were prescribed. The patient is stable for discharge. A short course of cyclobenzaprine is prescribed for 5 days, to be taken nightly before bed to assist with sleep and facilitate healing. Medication instructions and rationale were discussed, and the patient demonstrated understanding. The patient will follow up with the primary care provider for ongoing management. Return precautions were reviewed, including instructions to return to the emergency department for any worsening, recurrent, or additional concerning symptoms.The patient was given the opportunity to ask questions and verbal comprehension was confirmed. All discharge instructions were provided in clear language, consistent with best practices for effective ED discharge communication and patient safety. Differential Dx:Considerations: Aortic dissection, Musculoskeletal pain, Strain, Other Departure Disposition: HOME / SELF CARE / HOMELESS Impression: Primary Impression: Back problem Additional Impressions: Strain of lumbar region Strain of thoracic region Condition: Stable Discharge Instructions: Acute Back Pain, Adult, Lumbosacral Strain Additional Instructions: You are being discharged today after treatment for muscle strain and knee pain. In the emergency department, you received a dose of Toradol (a pain reliever) and Flexeril (a muscle relaxer). These helped improve your symptoms. You will be sent home with a prescription for Flexeril. Take this medicine at night before bed for the next 5 days, as directed. Flexeril can help with muscle pain and help you sleep while your body heals. Please follow up with your primary care provider about your knee concerns. They can help with ongoing care and answer any questions about your recovery. If you notice your pain getting worse, if your symptoms come back, or if you have any new or concerning symptoms (such as swelling, redness, fever, trouble moving your knee, or severe pain), return to the emergency department right away. For the best recovery, rest your knee, use ice if needed, and avoid activities that make the pain worse. Gentle movement and stretching may help as you start to feel better. If you have any questions about your medicines or your recovery, please contact your doctor. Referrals: NO PRIMARY CARE PROVIDER (PCP) Prescriptions Cyclobenzaprine* (Cyclobenzaprine*) 10 Mg Tablet 1 TAB PO HS for muscle spasms for 5 Days, #5 TAB 0 Refills Prov: PAMELA ZELAYA 03/23/25 Education Educated: Patient Educated regarding: diagnosis, treatment, need for follow up Signature Scribe Signature: A Attestation: Scribed for Pamela Zelaya by RAFAEL Edwards . 03/23/25 20:27 PAMELA ZELAYA Mar 23, 2025 18:06
--- NOTE | 2025-03-23 18:30 | RADIOLOGY REPORT ---
EXAM: DI CHEST,SINGLE VIEW HISTORY: Chest pain TECHNIQUE: 1 view of the chest COMPARISON: DI CHEST,SINGLE VIEW on DOS: 04/07/24 FINDINGS/IMPRESSION: LUNGS: No pleural effusion, consolidation, or pneumothorax. MEDIASTINUM: Unremarkable. BONES: No acute osseous abnormality. OTHER: None.
--- NOTE | 2025-03-23 18:31 | ELECTROCARDIOGRAPH REPORT ---
[facility] Test Date: 2025-03-23 Test Time: 18:29:18 Pat Name: LENNIE RAMIREZ Department: [facility]- Patient ID: [facility]-[id number] Room: Gender: F Receptionist Clerk: : 1950 Requested By: TERESO ZELAYA Order Number: [id number] Reading MD: Dr. IVA Tatum Measurements Intervals [place] Rate: 64 P: 31 MI: 123 QRS: 57 QRSD: 94 T: 40 QT: 421 QTc: 435 Interpretive Statements Sinus rhythm Abnormal R-wave progression, early transition Baseline wander in lead(s) V2 Electronically Signed On 03-25-2025 11:47:[address] IVA Tatum Please click the below link to view image of tracing.
[2025-03-23 18:33] LABS: MEAN PLATELET VOLUME 8.7 FL (7.4-10.4); RED CELL DISTRIBUTION WIDTH 14.5 % (11.5-14.5)
[2025-03-23 18:59] LABS: CREATININE 0.66 MG/DL (0.40-0.90); PRO BRAIN NATRIURETIC PEPTIDE < 30 PG/ML (0-125); TOTAL CARBON DIOXIDE 30.6 MMOL/L (24-32); eCRCL 60 ML/MIN; eGFR 88 ML/MIN
[2025-03-23 20:26] VITALS: RESP 18
[2025-03-23] MEDS: ketorolac trometh 30MG/ML vial 30 MG/ML VIAL IM ONE (20:26)
[2025-03-23] MEDS ORDERED: CYCL-1 PO (20:27)
[2025-03-23 20:30] VITALS: TEMP 97.7
== END 2025-03-23 20:37 | disposition home or self-care (01) ==
LOC: ER 17:12
DX: S39.012A Strain of muscle, fascia and tendon of lower back, initial encounter (principal); S29.012A Strain of muscle and tendon of back wall of thorax, initial encounter; Z88.5 Allergy status to narcotic agent; Z79.899 Other long term (current) drug therapy; X50.9XXA Other and unspecified overexertion or strenuous movements or postures, initial encounter; Y93.89 Activity, other specified; Y92.89 Other specified places as the place of occurrence of the external cause; Y99.8 Other external cause status
CPT/HCPCS: 36415; 71045; 80048; 83880; 84484; 85025; 93005; 99285